=== PATIENT | female | born 1955 | race Asian ===

== ENCOUNTER 2025-04-17 06:41 | Emergency (ER) | payer MEDICARE, BC ==
[~2025-04-17] VITALS: Ht 154.9 cm; Wt 46.7 kg
[2025-04-17 07:50] VITALS: BP 173/104; TEMP 98.1; O2SAT 99
== END 2025-04-17 07:51 | disposition home or self-care (01) ==
LOC: ER 06:50
DX: S90.32XA Contusion of left foot, initial encounter (principal); K75.4 Autoimmune hepatitis; Z85.41 Personal history of malignant neoplasm of cervix uteri; Z88.0 Allergy status to penicillin; Z88.1 Allergy status to other antibiotic agents; Z90.49 Acquired absence of other specified parts of digestive tract; Z90.710 Acquired absence of both cervix and uterus; X58.XXXA Exposure to other specified factors, initial encounter; Y93.89 Activity, other specified; Y92.89 Other specified places as the place of occurrence of the external cause; Y99.9 Unspecified external cause status
CPT/HCPCS: 73630-TC